=== PATIENT | male | born 1955 | race Caucasian/White ===

== ENCOUNTER 2016-12-31 18:37 | Inpatient (IN) | payer BC ==
--- NOTE | ~2016-12-31 | HP ---
Unit #: [id number] #: [id number] Patient: EMIR HINKLE [id number] [address] [place], [place] [address] [id number] I MR#: [id number] NAME: EMIR HINKLE. ROOM: 16889 Age: 61 Sex: M Admission Date: 12/31/2016 : 1955 Attending Physician: Pearl Fuchs M.D. Primary Care Physician: Jah Dunbar Jr., M.D. HISTORY AND PHYSICAL CHIEF COMPLAINT Two months of shortness of breath and cough with reportedly abnormal outpatient chest CT. 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 The patient states that he well until two months prior to admission. He had some head congestion at that time and began to know increasing shortness of breath. Had mildly productive cough. Was seen by his primary care physician and given an injection of steroids, placed on a Z-MARTHA and amoxicillin. May have had some minor improvement, but symptoms return and he repeated the course of antibiotics. Due to persistent symptoms he underwent a CT scan yesterday at an outpatient facility, which reportedly was very abnormal. He was told to come to the emergency department for evaluation and treatment. Although the patient does have a cough, he states that it is minimally productive, occasionally of purulent sputum, which is deep. Denies wheezing, fevers, sweats or chills, or any sort of chest pain. Of note, the patient is taking methotrexate. Has taken methotrexate for some time, which was discontinued I believe today by Dr. Dill for some kidney issues. The patient also was a 45 pack year smoker, stopped smoking a year ago. 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 On examination the patient has coarse crackles bilaterally in his lower lobes about a third way up. He has a normal white count and no fever. Current chest x-rays only shows increased atelectasis in the left base. In the ER the patient was given Rocephin and Zithromax. He denies exposures to exotic animals. PAST MEDICAL HISTORY 1. Pustular psoriasis. 2. Kidney stone requiring stent. 3. Hyperlipidemia. 4. Colonoscopy 06/2016 noting diverticular disease and polyps, which were snared. 5. Oral surgery and surgery parotid glands for stone. 6. Left rotator cuff repair. 7. Vasectomy. 8. Lasik surgery. 9. Tonsillectomy. ALLERGIES Unit #: [id number] #: [id number] Patient: EMIR HINKLE Lubriderm, bacitracin, polymyxin. MEDICATIONS Zyrtec 10 mg daily; fenofibrate 160 mg b.i.d.; fish oil 300 mg daily; methotrexate. FAMILY HISTORY CAD and lung disease. SOCIAL HISTORY The patient lives with his . He has a 45 pack year smoking history, stopped smoking last year, does not drink alcohol. REVIEW OF SYSTEMS Notable for increasing shortness of breath, particularly with exertion, decreased energy, mainly a nonproductive cough, pustular psoriasis, hyperlipidemia, kidney stones requiring surgery and above mentioned surgeries. Other systems were reviewed and are negative. PHYSICAL EXAMINATION GENERAL: Pleasant 61-year-old male currently in no acute distress. VITAL SIGNS: Temperature 98.6, pulse 87, respirations 16, blood pressure 150/79, O2 saturation was 94% on room air. HEENT: Eyes - PERRLA, extraocular muscles are intact. Pharynx is benign. NECK: Supple without adenopathy or thyromegaly. CHEST: Reveals bilateral course crackles about a third up. CARDIAC: Normal S1 and S2 without S3, S4, or murmur. ABDOMEN: Bowel sounds are present. No hepatosplenomegaly, tenderness or masses. EXTREMITIES: Without clubbing, cyanosis or edema. Pedal pulses are present. NEUROLOGIC: Patient is awake, alert and oriented. Cranial nerves are intact. Equal strength throughout. DIAGNOSTIC STUDIES ADMISSION LABS: Hematocrit is 44.2, normal white cont and platelet count. Normal coags. SMA 12 - glucose 112, creatinine 1.7, up from 1.2 three years ago. Apparently this has improved; however, according to the patient recently. ALT 46, normal lactic acid level. IMAGING STUDIES: Chest x-ray - left base atelectasis. CARDIOLOGY STUDIES: EKG shows a normal sinus rhythm rate 85, right axis deviation. Nonspecific ST wave abnormalities. ASSESSMENT 1. Shortness of breath and cough, which is mainly nonproductive x2 months despite antibiotics with reportedly abnormal outpatient CT scan. Rule out atypical pneumonia, rule out methotrexate pulmonary fibrosis versus other lung disease as patient does have asbestos exposure. 2. Prior 45 pack year tobacco use. 3. Pustular psoriasis on methotrexate. 4. Mild acute kidney injury. PLANS 1. Rocephin and doxycycline pending cultures. 2. Check procalcitonin level. Unit #: [id number] #: [id number] Patient: EMIR HINKLE 3. DuoNeb low dose steroids and mucolytics. 4. Obtain CT scan, which was done as an outpatient. 5. Discontinue methotrexate. 6. Consult pulmonary. 7. DVT and gastritis prophylaxis. Dictated by Pearl Fuchs M.D. AML/ts TD: 01/01/2017 05:08 JOB #: [id number] HISTORY AND PHYSICAL Page 1 of 1 X Pearl Fuchs MD HISTORY AND PHYSICAL
--- NOTE | ~2016-12-31 | PFT ---
[id number] [place] [id number] [facility]. [place], [place] [address] [id number] I MR#: [id number] NAME: EMIR HINKLE ROOM: 218 SEX: M STUDY DATE/TIME: 01/03/2017 : 1955 AGE: 61 STUDY DESCRIPTION: Attending Physician: Padmini Masterson M.D. Primary Care Physician: Jah Dunbar Jr., M.D. PULMONARY DIAGNOSTIC REPORT EXAM PFT. FINDINGS Spirometry is suggestive of a moderate restrictive defect. FVC is 2.57 liters, 54% of predicted. Flow volume loop consistent with a restrictive defect. Please note that restriction could not be confirmed by spirometry along and consider full PFTs with lung volumes and diffusion capacity if clinically indicated. Dictated by... Josias Alfred M.D. CIRO/antony TD: 01/03/2017 12:08 JOB #: [id number] PULMONARY DIAGNOSTIC REPORT Page 1 of 1
--- NOTE | ~2016-12-31 | EKG ---
PATIENT: EMIR HINKLE UNIT #: [id number] Ventricular Rate: 85 BPM Atrial Rate: 85 BPM P-R Interval: 186 ms QRS Duration: 72 ms Q-T Interval: 370 ms QTC Calculation(Bezet): 440 ms P Jefferson: 23 degrees Calculated R Jefferson: -98 degrees Calculated T Jefferson: 55 degrees Diagnosis Line: Normal sinus rhythm Diagnosis Line: Right superior axis deviation Diagnosis Line: Pulmonary disease pattern Diagnosis Line: Abnormal ECG Diagnosis Line: When compared with ECG of 31-MAY-2014 11:51, Diagnosis Line: Premature ventricular complexes are no longer Diagnosis Line: Present Diagnosis Line: Confirmed by JOSÉ MANUEL TELLO MD ([id number]) on 01/01/2017 Diagnosis Line: 7:19:15 PM INTERPRETING MD: ELISHA ARCE
--- NOTE | ~2016-12-31 | CO ---
Unit #: [id number] #: [id number] Patient: EMIR HINKLE [id number] [address] [place], [place] [address] [id number] I MR#: [id number] NAME: EMIR HINKLE. ROOM: 218 Age: 61 Sex: M Admission Date: 12/31/2016 : 1955 Attending Physician: Padmini Masterson M.D. Primary Care Physician: Jah Dunbar Jr., M.D. Consultation Date: 01/01/2017 CONSULTATION REPORT REASON FOR CONSULTATION Cough, shortness of breath, and possible abnormal CAT scan. HISTORY OF PRESENT ILLNESS A 61-year-old gentleman who smoked most of his life until about a year ago but denies any history of lung disease, presents with a two-month history of cough and shortness of breath. He denies any wheezing, only has rare sputum production. No chest pain or hemoptysis. There has not been any documented fever. He apparently has undergone multiple rounds of steroids and antibiotics including Zithromax and amoxicillin, minimal if any improvement. A CT scan was performed two days ago which was "abnormal" with bilateral lower lobe pneumonia and was told to come to the hospital. He has been treated with antibiotics for pneumonia including doxycycline and Rocephin and denies any improvement. PAST MEDICAL HISTORY 1. 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 2. History of kidney stone. 3. Hyperlipidemia. 4. Diverticulosis. 5. Sleep apnea on CPAP. HOME MEDICATIONS 1. Methotrexate. 2. Zyrtec. 3. Fenofibrate. 4. Fish oil. ALLERGIES Lubriderm, bacitracin, polymyxin. FAMILY HISTORY Ill-defined lung disease and coronary artery disease. SOCIAL HISTORY Smoked most of his life, quit one year ago. Does not drink alcohol. 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 No definite exposure to asbestos of significance. REVIEW OF SYSTEMS Basically was asymptomatic until two months ago. Shortness of breath, cough as above. No chest pain, palpitations, abdominal pain, melena, trouble swallowing, leg pain swelling. He does snore. He is on CPAP at Unit #: [id number] #: [id number] Patient: EMIR HINKLE W home for sleep apnea. PHYSICAL EXAMINATION GENERAL: Examination reveals a patient who is in no acute distress. VITAL SIGNS: He is afebrile. Pulse 78, respiratory rate 16, blood pressure 122/73. He is 5 foot 9 inches, weight 209, BMI is 31. HEENT: Pupils equal, round, and reactive to light. Sclerae anicteric. Head atraumatic. NECK: Supple. No supraclavicular or cervical adenopathy appreciated. Mallampati class IV oropharynx. CHEST: Coarse crackles at the bases. Some expiratory wheeze scattered and scattered rhonchi. CARDIAC: Reveals regular rate and rhythm. Distant heart tones. No definite murmur, rub, or gallop. ABDOMEN: Soft, nontender. No hepatomegaly, rebound. EXTREMITIES: Reveal no clubbing, cyanosis, or edema. No calf tenderness. SKIN: Warm and dry without rash or diaphoresis. NEUROLOGIC: Grossly intact with no focal muscle or sensory deficits noted. DIAGNOSTIC STUDIES LABORATORY: BUN is 18, creatinine is 1.4. Procalcitonin is negative. INR normal. CBC essentially normal. No significant eosinophilia. Flu screen negative. Urinalysis unremarkable. Blood cultures performed and are pending. IMAGING: Chest x-ray quite frankly is fairly unremarkable. CT scan: We do not have the formal report. No films are available to review. The patient's history suggests bilateral pneumonia. CARDIOVASCULAR: EKG fairly unremarkable. IMPRESSION 1. A two-month history of cough, shortness of breath, abnormal CAT scan with no significant improvement with antibiotics and steroids. I doubt community-acquired bacterial pneumonia. 2. Abnormal exam with crackles and two-month history. Consider methotrexate toxicity, atypical infections, other inflammatory lung diseases. 3. Tobacco use, possible underlying chronic obstructive pulmonary disease. 4. Obstructive sleep apnea on CPAP. PLAN Continue antibiotics for now and need at least the report of his CAT scan but really need to view the images and he ultimately may need high resolution CT scan of the chest. I will check bedside spirometry, start steroids, inhaled corticosteroids and long acting beta agonist and nebulized bronchodilators. Ultimately, he will need an outpatient pulmonary function tests and pulmonary evaluation. Obviously, continue his CPAP. Thank you very much for allowing me to participate in the care of Mr. Hinkle. Unit #: [id number] #: [id number] Patient: IVANA HINKLEELL Leonora Dictated by... Yajaira Tiwari/larry TD: 01/01/2017 16:01 JOB #: [id number] CC: Jah Dunbar Jr., M.D. CONSULTATION REPORT Page 1 of 1 X Josias Alfred MD CONSULTATION REPORT
--- NOTE | ~2016-12-31 | CR72 ---
[facility] A Service of [facility] RADIOLOGY TEXT RESULTS PATIENT: EMIR HINKLE LOCATION: [place] [address] : [birth year] UNIT #: [id number] AGE: [address]: Padmini Masterson MD SEX: M ORDER DR: [id number] [facility] [address] [facility]. [place], [place] [address] [id number] MR#: [id number] Acc #: [id number] NAME: EMIR HINKLE. : 1955 SEX: M STUDY DATE/TIME: 12/31/2016 19:02 UNIT: CED ROOM: 53434 STUDY DESCRIPTION: CR Chest Single View Portable Attending Physician: Pearl Fuchs M.D. Ordering Physician: Jewell Judd M.D. Primary Care Physician: Jah Dunbar Jr., M.D. MEDICAL IMAGING REPORT This report is preliminary unless electronic signature is present EXAM Portable chest INDICATIONS Shortness breath, cough, pneumonia 2 months. COMPARISON 12/10/2016. FINDINGS There is increased atelectasis in the left base. Heart size stable. Visualized osseous structures are unremarkable. IMPRESSION Increased atelectasis in the left base. Dictated by... Sd Langston M.D. THIS IS AN ELECTRONICALLY VERIFIED REPORT Sd Langston M.D. at 01/01/2017 10:04 AM SHANNAN/jeromy TD: 12/31/2016 23:25 JOB #: [id number] MEDICAL IMAGING REPORT Page 1 of 1 COPY
--- NOTE | ~2016-12-31 | DS ---
Unit #: [id number] #: [id number] Patient: EMIR HINKLE [id number] [address] [place], [place] [address] [id number] MR#: [id number] NAME: EMIR HINKLE ROOM: 218 Age: 61 Sex: M Admission Date: 12/31/2016 : 1955 Discharge Date: 01/02/2017 Attending Physician: Padmini Masterson M.D. Primary Care Physician: Jah Dunbar Jr., M.D. DISCHARGE SUMMARY PRINCIPAL DIAGNOSES 1. Atypical pneumonia. 2. Acute kidney injury and chronic kidney disease, stage 3, with discharge creatinine of 1.4. 3. Restrictive lung disease per bedside PFTs. 4. Pustular psoriasis maintained on methotrexate. 5. Hyperlipidemia. CONSULTANTS Dr. Alfred, pulmonology. PROCEDURES Chest x-ray on 12/31/2016 with atelectasis in the left base. CLINICAL HISTORY AND HOSPITAL COURSE Mr. Hinkle is a really nice 61-year-old male with a several month history of progressive shortness of breath who presents to the emergency department. He was sent by Dr. Dill after presenting there and having these complaints of shortness of breath. Chest x-ray revealed some increasing atelectasis in the left base. Patient was subsequently admitted. Dr. Alfred was consulted. Patient was placed on antibiotics for suspected atypical pneumonia. The patient had recently undergone a high resolution CT scan as an outpatient and the report was reviewed. This revealed ground-glass opacities and some bronchiectasis in the lower lobes. There was no evidence of fibrosis on that scan nor was there any significant evidence of COPD. Bedside spirometry done in the hospital revealed restrictive defect. Today, patient states he feels quite a bit better. He will be transitioned to oral steroids from IV in addition to oral antibiotics and will follow up with Dr. Alfred. At this point, it is unclear whether perhaps patient's shortness of breath is due to methotrexate therapy and thus we are going to hold methotrexate for now. DISCHARGE CONDITION Stable. DISCHARGE STATUS Discharge to home. DISCHARGE MEDICATIONS 1. Prednisone 20 mg tablets 2 tablets daily for five days; then 1 tablet Unit #: [id number] #: [id number] Patient: EMIR HINKLE for five days; then, discontinue. 2. Doxycycline 100 mg p.o. b.i.d. for 6 days. 3. Zyrtec 10 mg daily. 4. Fish oil 300 mg daily. 5. Fenofibrate 160 mg b.i.d. Of note, methotrexate is currently being held. DISCHARGE INSTRUCTIONS 1. Patient was instructed to follow heart healthy diet. 2. He can increase his activity as tolerated. FOLLOWUP 1. Patient will follow up with Dr. Alfred's nurse practitioner in 2 weeks. 2. He will follow up with Dr. Alfred himself in 6-8 weeks. The patient has been instructed to try to get a disk of the CT scan of his chest to bring to the office. 3. 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 Maciel Garcia, in 1-2 weeks given he will likely need some alternative therapy for his pustular psoriasis. Dictated by... Padmini Masterson M.D. NA/isidoro TD: 01/02/2017 17:13 JOB #: [id number] CC: Yajaira Tiwari M.D. DISCHARGE SUMMARY Page 1 of 1 X Padmini Masterson MD X DISCHARGE SUMMARY
[~2016-12-31 18:37] MED LIST: AUGMENTIN1 TAB.SR1 PO; AUGMENTIN875 MG PO; CENTRUM PO; CENTRUM SILVER1 EAC2 PO; CLINDAMYCIN HC300 MG PO; FENOFIBRATE160 MG PO; FISH OIL 1,0001 CAP PO; FISH OIL 1,2001 CAP PO; FISH OIL 10001000 MG PO; FLEXERIL10 MG PO; HYDROCODON-ACE1 EAC7 PO; IBUPROFEN800 MG PO; LORTAB 7.5-5001 TAB PO; METHOTREXATE2.5 MG; METHOTREXATE2.5 MG PO; MULTIPLE VITAMI1 T11 PO; NICODERM C1 PATCH .1 TD; PERCOCET5/325 PO; PHENERGAN25 M1 PO; TRICOR PO; WALGREENS PHARMACY; ZYRTEC10 M1 PO
[2016-12-31 18:55] LABS: BASOPHIL% 0.4 % (0-2.5); EOSINOPHIL# 0.2 X10e3 (0-0.7); EOSINOPHIL% 1.8 % (0.0-7.0); HEMATOCRIT 44.2 % (38.0-50.0); HEMOGLOBIN 14.6 gm/dL (13.0-16.0); LYMPHOCYTE# 1.7 X10e3 (1.0-3.5); LYMPHOCYTE% 19.5 % (17.0-45.0); MEAN CELL VOLUME 98.6 FL (83-96); MEAN CORPUSCULAR HEMOGLOBIN 32.5 PG (28-34); MEAN PLATELET VOLUME 9.2 FL (6.5-11.5); MONOCYTE# 0.8 X10e3 (0-1.0); MONOCYTE% 9.8 % (3.0-12.0); NEUTROPHIL# 5.9 X10e3 (1.5-7.1); NEUTROPHIL% 68.5 % (40-75); PLATELET COUNT 176 X10e3 (140-420); RED BLOOD COUNT 4.48 X10e (3.90-5.60); RED CELL DISTRIBUTION WIDTH 15.1 % (11.0-15.5); WHITE BLOOD COUNT 8.6 X10e3 (4.0-10.5)
[2016-12-31 19:01] LABS: DIFF IND NO
[2016-12-31 19:07] LABS: PARTIAL THROMBOPLASTIN TIME 24.7 SECONDS (23.5-31.3); PROTHROMBIN TIME (PATIENT) 10.6 SECONDS (9.6-11.5)
[2016-12-31 19:19] LABS: BILIRUBIN, DIRECT 0.1 mg/dL (0.0-0.2); BILIRUBIN,INDIRECT 0.4 mg/dL (0.0-0.9); BILIRUBIN,TOTAL 0.5 mg/dL (0.2-2.0); BUN/CREATININE RATIO 12.94; CALCIUM SERUM 9.3 mg/dL (8.4-10.2); CREATININE SERUM 1.7 mg/dL (0.6-1.4); GLOM FILT RATE Estimated 42.6 mL/min (>60); POTASSIUM 4.3 mmol/L (3.5-5.1); PROTEIN TOTAL SERUM 7.5 g/dL (6.0-8.3)
[2016-12-31 20:28] LABS: URINE SOURCE CLEAN CATCH
[2016-12-31 20:37] LABS: URINE APPEARANCE CLEAR; URINE BILIRUBIN NEG (NEG); URINE BLOOD NEG (NEG); URINE COLOR YELLOW; URINE GLUCOSE NEG (NEG); URINE KETONE NEG (NEG); URINE LEUKOCYTE ESTERASE NEG (NEG); URINE NITRATE NEG (NEG); URINE PH 6.5 (5-8); URINE PROTEIN NEG (NEG); URINE SPECIFIC GRAVITY 1.016 (1.003-1.035); URINE UROBILINOGEN 0.2 MG/DL (NEG)
[2016-12-31 20:43] LABS: CULTURE INDICATED? NO; INFLUENZA A NEG (NEG)
[2016-12-31 20:44] LABS: INFLUENZA B NEG (NEG)
[2016-12-31] MEDS ORDERED: ZYRTEC10 M1 PO (22:02)
[2016-12-31] MEDS ORDERED: FENOFIBRATE160 MG PO (22:03)
[2016-12-31] MEDS ORDERED: FISH OIL300 MG PO (22:04)
[2017-01-01 04:31] LABS: BASOPHIL# 0.1 X10e3 (0-0.3); BASOPHIL% 0.7 % (0-2.5); DIFF IND NO; EOSINOPHIL# 0.3 X10e3 (0-0.7); EOSINOPHIL% 3.7 % (0.0-7.0); HEMATOCRIT 41.8 % (38.0-50.0); HEMOGLOBIN 13.8 gm/dL (13.0-16.0); LYMPHOCYTE# 2.1 X10e3 (1.0-3.5); LYMPHOCYTE% 27.3 % (17.0-45.0); MEAN CELL VOLUME 98.4 FL (83-96); MEAN CORPUSCULAR HEMOGLOBIN 32.4 PG (28-34); MEAN PLATELET VOLUME 9.1 FL (6.5-11.5); MONOCYTE# 0.8 X10e3 (0-1.0); NEUTROPHIL# 4.5 X10e3 (1.5-7.1); NEUTROPHIL% 58.3 % (40-75); PLATELET COUNT 158 X10e3 (140-420); RED BLOOD COUNT 4.25 X10e (3.90-5.60); RED CELL DISTRIBUTION WIDTH 14.7 % (11.0-15.5); WHITE BLOOD COUNT 7.7 X10e3 (4.0-10.5)
[2017-01-01 04:57] LABS: BLOOD UREA NITROGEN 18 mg/dL (9-23); BUN/CREATININE RATIO 12.85; CALCIUM SERUM 8.3 mg/dL (8.4-10.2); CARBON DIOXIDE 23 mmol/L (22-31); CHLORIDE 109 mmol/L (100-111); CREATININE SERUM 1.4 mg/dL (0.6-1.4); GLOM FILT RATE Estimated 53.9 mL/min (>60); GLUCOSE FASTING 105 mg/dL (70-110); SODIUM 136 mmol/L (135-145)
[2017-01-01 05:09] LABS: PROCALCITONIN <0.05 NG/ML
[2017-01-01] MEDS ORDERED: METHOTREXATE2.5 MG PO (10:33)
[2017-01-02] MEDS ORDERED: DELTASONE20 MG PO (12:28)
[2017-01-02] MEDS ORDERED: DOXYCYCLINE HY100 M3 PO (12:29)
[2017-01-09 14:01] LABS: ASPERGILLUS FLAVUS Negative (Negative); ASPERGILLUS FUMIGATUS Negative (Negative); ASPERGILLUS NIGER Negative (Negative); BLASTOMYCES ANTIBODY Negative (Negative); COCCIDIODES ANTIBODY Negative (Negative); CRYPTOCOCCAL AB <1:2 (()); CRYPTOCOCCAL AG SCREEN SOURCE Serum (()); CRYPTOCOCCAL SCREEN Not Detected (Not Detected); HISTOPLASMA AB Negative (Negative)
== END 2017-01-02 12:50 | disposition home or self-care (01) | DRG 682 ==
LOC: CED 18:37 → CEDOF 23:30 → C2A 01-01 08:30
PROVIDERS: Emergency Medicine; Internal Medicine
DX: N17.9 Acute kidney failure, unspecified (principal); J18.9 Pneumonia, unspecified organism; L40.1 Generalized pustular psoriasis; J98.4 Other disorders of lung; Z77.090 Contact with and (suspected) exposure to asbestos; Z87.891 Personal history of nicotine dependence; E78.5 Hyperlipidemia, unspecified; G47.33 Obstructive sleep apnea (adult) (pediatric); N18.3 Chronic kidney disease, stage 3 (moderate)
CPT/HCPCS: 36415; 71010; 80048; 80076; 81003; 82308; 83605; 85025; 85610; 85730; 86606; 86612; 86631; 86698; 87040; 87070; 87205; 87305; 87449; 87804; 93005; 94640; 94664; 94760; 96365; 96367; 99285; J0456; J0696; J1650; J2920